=== PATIENT | female | born 1945 | race Caucasian/White ===

== ENCOUNTER 2017-03-07 07:49 | Day surgery (SDC) | payer OTHER ==
[~2017-03-07 07:49] MED LIST: ACETAMINOPHEN 1,000 MG/100 ML VIAL IV SCH; FAMOTIDINE IN SALINE, ISO-OSM 20 MG/50 ML PIGGYBACK IV SCH; LIDOCAINE HCL 1% 20 ML VIAL SUBCUT PRN; METOCLOPRAMIDE HCL 10 MG/2 ML VIAL IV PRN; MIDAZOLAM HCL 2 MG/2 ML SYR IV PRN; SCOPOLAMINE 1.5 MG PATCH TD PRN
[2017-03-07] MEDS ORDERED: SCOPOLAMINE 1.5 MG PATCH TD PRN ×2 (07:54→10:14)
[2017-03-07] MEDS ORDERED: LACTATED RINGERS 1,000 ML IV SCH ×4 (08:00→11:00)
[2017-03-07] MEDS ORDERED: BUPIVACAINE/EPI 0.5% 50 ML VIAL INFILTRAT ONE (08:05)
[2017-03-07] MEDS ORDERED: ceFAZolin 1 GM/10 ML VIAL ONE (08:21)
[2017-03-07] MEDS ORDERED: MIDAZOLAM HCL 2 MG/2 ML VIAL ONE (08:22)
[2017-03-07] MEDS ORDERED: ONDANSETRON HCL 4 MG/2 ML VIAL ONE ×2 (08:45→10:28)
[2017-03-07] MEDS ORDERED: FENTANYL 100 MCG/2 ML VIAL ONE (08:46)
[2017-03-07] MEDS ORDERED: DEXAMETHASONE 4 MG/ML VIAL ONE (08:46)
[2017-03-07 09:57] VITALS: TEMP 97.2
--- NOTE | 2017-03-07 10:01 | OPERATIVE NOTE: Orthopedic ---
DATE OF SURGERY: 03/07/17 SURGEON: Randy ANESTHESIA: General PREOPERATIVE DIAGNOSIS: Left knee effusion of unclear etiology POSTOPERATIVE DIAGNOSIS: Patellofemoral arthrosis, with diffuse synovitis PROCEDURE PERFORMED: Left knee arthroscopy, and synovial debridement INDICATION FOR PROCEDURE: The patient is a 71-year-old female who developed an effusion in her left knee after falling directly onto the knee. She did have known patellofemoral arthrosis, but this did not explain her persistent large effusion. A subsequent MRI revealed the effusion, it did not reveal any structural abnormality such as meniscus tear. She therefore underwent aspiration which ruled out infection and crystalline arthropathy. However, her effusion still failed to improve, and therefore she was taken to the operating room for diagnostic knee arthroscopy. SUMMARY: After informed consent was obtained, the patient was taken to the operating room where she was placed in the supine position under general anesthesia. After adequate anesthesia was achieved, the left knee lower extremity were prepped and draped in the usual sterile fashion, the limb was gently exsanguinated, and tourniquet was inflated about the proximal thigh to 275 mm record.a standard anterolateral Incision was then established and the arthroscope was guided into the knee and directed into the suprapatellar pouch. The suprapatellar pouch was examined and noted to be febrile loose bodies or pathology. The retractor surface of the patella was examined and noted to have diffuse arthrosis, with some areas of grade 4 degenerative change. She was also noted to have what appeared to be a thickened area of synovium directly beneath the medial facet of the patella. There was also grade 4 degenerative change on the upper portion of the lateral femoral trochlea. The arthroscope was then guided into the medial gutter which was noted to be free of any loose bodies or pathology. The arthroscope was then guided into the anterior portion of the knee and directed medially at which time the anteromedial incision was established under direct visualization. Again there was abundant synovitis which was debrided using a shaver. The anterior cruciate ligament was examined , tested with a probe, and noted to be stable and intact. The arthroscope was then guided into the medial compartment which time there was very mild degenerative change on the medial femoral condyle. There was no evidence of full-thickness chondral injury. The medial meniscus was examined and noted to be stable and intact. The arthroscope was guided into the lateral compartment which time the lateral meniscus was noted to have diffuse fraying, but no extensive tear. 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 The shaver was used to debride the frayed portion of the meniscus to a stable rim. The arthroscope was guided into the lateral gutter which was also noted to be significant loose bodies or pathology. The arthroscope was then guided back up into the patellofemoral joint which time the thickened area of synovium was debrided. The arthroscope was then guided back into the anterior portion of the knee, and hemostasis was achieved using the Arthrex radiofrequency wand. The arthroscope was removed, and the excess fluid was drained. The knee was infused with 20 cc of 0.25% Marcaine with epinephrine, and the incisions were closed with a single 3-0 nylon suture. The compressive sterile dressing was applied. The patient tolerated the procedure well and was taken to the recovery room in stable condition. ESTIMATED BLOOD LOSS: minimal FLUIDS: 700 mL TOURNIQUET TIME: 25 minutes
[2017-03-07] MEDS ORDERED: MORPHINE SULFATE 10 MG/ML SYR IV PRN ×2 (10:12→10:14)
[2017-03-07] MEDS ORDERED: FENTANYL 100 MCG/2 ML VIAL IV PRN ×2 (10:12→10:14)
[2017-03-07] MEDS ORDERED: ONDANSETRON HCL 4 MG/2 ML VIAL IV PRN ×2 (10:12→10:14)
[2017-03-07] MEDS ORDERED: ACETAMINOPHEN 1,000 MG/100 ML VIAL IV SCH (10:14)
[2017-03-07] MEDS ORDERED: METOCLOPRAMIDE HCL 10 MG/2 ML VIAL IV PRN (10:14)
[2017-03-07] MEDS ORDERED: LIDOCAINE HCL 1% 20 ML VIAL SUBCUT PRN (10:14)
[2017-03-07] MEDS ORDERED: FAMOTIDINE IN SALINE, ISO-OSM 20 MG/50 ML PIGGYBACK IV SCH (10:14)
[2017-03-07] MEDS ORDERED: MIDAZOLAM HCL 2 MG/2 ML SYR IV PRN (10:14)
[2017-03-07 10:20] VITALS: RESP 12
[2017-03-07] MEDS ORDERED: MIDAZOLAM HCL 2 MG/2 ML VIAL IV PRN (10:21)
[2017-03-07] MEDS ORDERED: MORPHINE SULFATE 2 MG/ML SYR IV PRN ×2 (10:23→11:00)
[2017-03-07 11:18] VITALS: O2SAT 94
[2017-03-07 11:19] VITALS: BP 162/84; PULSE 61
[2017-03-07] MEDS ORDERED: ceFAZolin 1 GM in NORMAL SALINE MINI-BAG+ 100 ML IV PRN ×2 (12:00)
--- NOTE | 2017-03-16 16:23 | PREOPERATIVE H&P ---
History of Present Illness (Aime Padilla MD; 02/10/2017 11:44 AM) The patient is a 71 year old female. The patient is here for follow-up after undergoing an MRI of her left knee. She is here to review the results. Allergies (Tana Daniels RN; 02/10/2017 9:16 AM) Climara GENERIC Erythromycin Nausea Synthroid *THYROID AGENTS* GI Distress. Levothyroxine GENERIC (GI) Family History (Tana Daniels RN; 02/10/2017 9:16 AM) Father @ 78 of CAD Mother @ 85 of AML, Pancreatic Cancer, Sister Breast cancer. Negative Family History of uterine, ovarian or colorectal cancer. Social History (Tana Daniels RN; 02/10/2017 9:16 AM) Number of Children Biological, 2 Marital status Re-. Alcohol use Occasional alcohol use Occupation works at [employer] Tobacco use Never smoker. Medication History (Tana Daniels RN; 02/10/2017 9:16 AM) Levoxyl (125MCG Tablet, 1 (one) Oral daily, Taken starting 03/21/2016) Active. (Patient previously requested brand name only, but has been doing fine with recent generic) Estrace (0.1MG/GM Cream, 1 (one) Vaginal 2 nights a week, Taken starting 2016) Active. (QS for 90 day supply with 1 yr refills) Protonix (40MG Tablet DR, 1 tablet Oral daily, Taken starting 02/23/2016) Active. Vivelle-Dot (0.1MG/24HR Patch TW, 1 Transdermal twice a week, Taken starting ) Active. MetroNIDAZOLE (0.75% Gel, Apply to affected area Gel External two times daily, Taken starting 11/10/2015) Active. Vitamin D (1000UNIT Tablet, 1 Oral daily) Active. Co Q 10 (10MG Capsule, Oral) Active. Probiotic Daily (Oral) Active. Restasis (Ophthalmic) Specific dose unknown - Active. Multi-Vitamin (1 Oral daily) Active. Aspirin (81MG Tablet, Oral) Active. Fish Oil Specific dose unknown - Active. Medications Reconciled Vitals (Tana Daniels RN; 02/10/2017 9:16 AM) 02/10/2017 9:14 AM Weight: 152 lb Height: 66.25in Body Surface Area: 1.78 m Body Mass Index: 24.35 kg/m LMP: (Hysterectomy) Temp.: 98.1F Pulse: 72 (Regular) Resp.: 16 (Unlabored) BP: 124/70 (Sitting, Left Arm, Standard) Physical Exam (Aime Padilla MD; 02/10/2017 11:45 AM) Musculoskeletal Physical examination today reveals that she still has a large effusion, and her examination is otherwise essentially unchanged. X-ray evaluation: We reviewed her MRI, and she has a very large effusion and evidence of fairly significant patellofemoral arthrosis, but there is no evidence of medial or lateral meniscus tear. Likewise her cruciate ligaments are intact. There is a little bit of change in the anterior portion of the medial collateral ligament, but no disruption of the ligament. Assessment & Plan (Aime Padilla MD; 02/10/2017 11:46 AM) Effusion of left knee (M25.462) Current Plans CELL COUNT, SYNOVIAL FLUID (08827) CRYSTAL ID/LT MICRSCPY (02073) AVERY CULTURE-AEROBIC (13043) BACT CULTURE ANY-ANAEROBIC (32187) GRAM STAIN (20377) PROTEIN, TOTAL, FL. (18920) Glucose, Fluid (53786) ASPIRATION OF LEFT KNEE () Note:: Assessment: Large effusion of the left knee, with no evidence of underlying meniscal pathology, and therefore of unclear etiology. Plan: We discussed options, and my recommendation was to perform aspiration for diagnostic purposes. The patient agreed to proceed, so after obtaining informed written consent we aspirated the knee under sterile prep, yielding 50 cc of clear straw-colored fluid. The aspirate was sent to the lab for cell count, crystals, and Gram stain and culture. We will contact her with the results once we obtain them. Signed by Aime Padilla MD (02/10/2017 11:47 AM) DANELLE
== END 2017-03-07 11:06 | disposition home or self-care (01) ==
LOC: SDS 07:49
PROVIDERS: ATTEND Orthopaedic Surgery
DX: M17.12 Unilateral primary osteoarthritis, left knee (principal); M25.462 Effusion, left knee; E21.3 Hyperparathyroidism, unspecified; E03.9 Hypothyroidism, unspecified; K21.9 Gastro-esophageal reflux disease without esophagitis; E66.3 Overweight; Z79.899 Other long term (current) drug therapy
CPT/HCPCS: J0690; J2250; J2405; J2765; J3010; S0020